=== PATIENT | female | born 1990 ===

== ENCOUNTER 2017-03-16 10:31 | Emergency (ER) | payer SELFPAY ==
--- NOTE | 2017-03-16 11:00 | RADIOLOGY REPORT ---
HISTORY: Pain after right ankle injury COMPARISON: None. FINDINGS: Three views of the ankle obtained. There is no acute fracture. There is no lytic or sclerotic lesion. The ankle mortise is intact. Th ere is no soft tissue swelling. No significant degenerative changes are noted. Os trigonum noted. IMPRESSION: Unremarkable ankle x-ray. Final Electronic Signature: This report was electronically signed by Db Pinto MD on 03/16/2017 10:58 AM. beatrice /
--- NOTE | 2017-03-16 11:42 | ER NURSING DOCUMENTATION ---
Nurse's Notes [facility] Name:Shayy Richard Age:26 yrs Sex:Female :1990 Arrival Date:03/16/2017 Time:10:31 BedTrauma-B Private MD: Diagnosis:Lower Leg Contusion Presentation: 03/16 10:35 Presenting complaint:. sc1 10:35 Acuity: MARY 4 sc1 10:36 Presenting complaint: Patient states: Pt fell and injured right ankle 5 days ago. Pain tg is worse when ambulating on it. Transition of care: patient was not received from another setting of care. 10:36 Method Of Arrival: Private Vehicle tg 10:36 Acuity: MARY 4 tg Triage Assessment: 10:45 General: Appears in no apparent distress, Behavior is cooperative, pleasant. Pain: tg Complains of pain in right Achilles and right ankle. Neuro: Level of Consciousness is awake, alert. Cardiovascular: Capillary refill < 3 seconds. Respiratory: Airway is patent Respiratory effort is even, unlabored, Respiratory pattern is. Derm: Skin is pink, warm & dry. Musculoskeletal: Circulation, motion, and sensation intact Capillary refill < 3 seconds in right toes. Historical: - Allergies: No known drug Allergies; - Home Meds: 1. None - PMHx: None; - PSHx: None; - Tetanus: < 10 years. - Ebola Screening: : Patient negative for fever greater than or equal to 101.5 degrees Fahrenheit, and additional compatible Ebola Virus Disease symptoms. Patient denies exposure to infectious person. Patient denies travel to an Ebola-affected area in the 21 days before illness onset. No symptoms or risks identified at this time. . - Immunization history: Flu Vaccine unknown. - Social history: Smoking status: Patient states was never smoker of tobacco. Screenin:41 Infectious Disease Risk Unable to Obtain. Abuse screen: Denies threats or abuse. Denies tg injuries from another. Nutritional screening: No deficits noted. Vital Signs: 10:38 BP 111 / 52; Pulse 82; Resp 16; Pulse Ox 9% ; Weight 58.97 kg (R); Height 5 ft. 5 in. tg (165.10 cm) (R); Pain 3/10; 10:38 Body Mass Index 21.63 (58.97 kg, 165.10 cm) tg ED Course: 10:32 Patient arrived in ED. ama 10:34 Moi Patten MD is Attending Physician. tl1 10:34 Mary Cheney, RN is Primary Nurse. sc1 10:36 Triage completed. sc1 10:42 Valuables Remains with patient. tg 11:16 Air stirrup applied to right ankle. sc1 11:20 Db Kang MD, Shaheen Burch DO is Referral Physician. tl1 Administered Medications: No medications were administered Outcome: 11:16 Discharged to home ambulatory. sc1 11:16 Condition: stable 11:16 Discharge instructions given to patient, Instructed on discharge instructions, follow up and referral plans. [facility] Demonstrated understanding of 11:21 Discharge ordered by . tl1 11:41 Patient left the ED. il1 03/17 08:25 Discharge F/U Call: Unable to reach: no answer st Signatures: Armond Farooq, RN RN Katlyn Eldridge RN RN Mary Clay, AMELIA RN sc1 Lalo Negron, Reg Reg Moi Loyola MD MD tl1
--- NOTE | 2017-03-16 11:42 | ER PHYSICIAN DOCUMENTATION ---
Physician Documentation [facility] Name:Shayy Richard Age:26 yrs Sex:Female :1990 Arrival Date:03/16/2017 Time:10:31 BedTrauma-B Private MD: Moi Koroma Disposition: 03/16/17 11:21 Discharged to Home/Self Care. Impression: Lower Leg Contusion. - Condition is Good. - Discharge Instructions: CONTUSION, Lower Extremity, CRUTCH WALKING. - Medical Reconciliation form form. - Follow up: Db Kang MD, Shaheen Burch DO; When: 2 - 3 days; Reason: Recheck today's complaints, Continuance of care. - Problem is new. - Symptoms have improved. HPI: 03/16 10:40 This 26 yrs old Unknown Female presents to ER via Private Vehicle with complaints of tl1 Ankle Injury - RIGHT. 10:40 The patient presents with an injury. The complaints affect the right ankle. Onset: The tl1 symptom(s)/episode began/occurred suddenly, 5 day(s) ago. She stumbled while walking 5 days ago in [place] and had a hyper-plantarflexion/inversion type injury. She was seen in a local ED where X - rays were reportedly negative for fracture. She was provided with an sera wrap and crutches, but she says the pain on the lateral aspect of her foot, but below the lateral malleolus is getting worse. She has not other complaint.. Historical: - Allergies: No known drug Allergies; - Home Meds: 1. None - PMHx: None; - PSHx: None; - Tetanus: < 10 years. - Ebola Screening: : Patient negative for fever greater than or equal to 101.5 degrees Fahrenheit, and additional compatible Ebola Virus Disease symptoms. Patient denies exposure to infectious person. Patient denies travel to an Ebola-affected area in the 21 days before illness onset. No symptoms or risks identified at this time. . - Immunization history: Flu Vaccine unknown. - Social history: Smoking status: Patient states was never smoker of tobacco. ROS: 09:00 MS/extremity: Positive for injury or acute deformity, pain. tl1 09:00 All other systems are negative. Exam: 09:00 Constitutional: The patient appears in no acute distress, alert. tl1 09:00 Cardiovascular: Rate: normal. 09:00 Respiratory: Respirations: normal. 09:00 Musculoskeletal/extremity: Joints: All joints are normal except the right ankle displays tenderness, just distal to the lateral malleolus. no deformity, bruising, swelling warmth or redness. There remainder of her ankle is NTTP. SHE does have some mild TTP as well over the cuboid and proximal 4th and 5th metatarsals.. 09:00 Skin: Exam negative for acute changes. Vital Signs: 10:38 BP 111 / 52; Pulse 82; Resp 16; Pulse Ox 9% ; Weight 58.97 kg (R); Height 5 ft. 5 in. tg (165.10 cm) (R); Pain 3/10; 10:38 Body Mass Index 21.63 (58.97 kg, 165.10 cm) tg MDM: 10:34 Patient medically screened. tl1 11:00 Data reviewed: vital signs, nurses notes, radiologic studies, plain films, and as a tl1 result, I will discharge patient. Test interpretation: by ED physician or midlevel provider: plain radiologic studies. Counseling: I had a detailed discussion with the patient and/or guardian regarding: the historical points, exam findings, and any diagnostic results supporting the discharge/admit diagnosis, radiology results, the need for outpatient follow up, to return to the emergency department if symptoms worsen or persist or if there are any questions or concerns that arise at home. Special discussion: She may have some soft tissue damage, and I suggested a short cast boot and crutches with weight bearing as tolerated until she can f/u with an orthopedist.. 03/16 11:01 Order name: ANKLE; [address] [id number] EDNH 03/16 11:22 Order name: ORTHO: Crutches & Training tl1 Dispensed Medications: No medications were administered Signatures: Armond Farooq RN RN tg Mary Cheney RN RN pa1 Moi Patten MD MD tl1
== END 2017-03-16 11:42 | disposition home or self-care (01) ==
LOC: ER 10:31
DX: S80.11XA Contusion of right lower leg, initial encounter (principal); W01.0XXA Fall on same level from slipping, tripping and stumbling without subsequent striking against object, initial encounter; Y92.89 Other specified places as the place of occurrence of the external cause; Y93.01 Activity, walking, marching and hiking; Y99.0 Civilian activity done for income or pay
CPT/HCPCS: 99282